=== PATIENT | female | born 1950 | race Caucasian/White ===

== ENCOUNTER 2016-12-09 14:22 | Emergency (ER) | payer MEDICARE ==
[~2016-12-09 14:22] MED LIST: BLOOD PRESSURE MED PO; C5 PO; CALTRA600D PO; DSS PO; FESO4 PO; FLEXI JOIN1 PO; GLUCOTROL5 PO; GLUCPH PO; KLONO1 PO; KLONO2 PO; KLONOPIN PO; KLONOPIN WAF0.125 MG PO; LEVEMIR SC; LIDODERM T; LORTAB10 PO; MAGNESIUM OTC PO; MSM PO; MULTIPLE VIT PO; NEXIUM20 M1 PO; NEXIUM40 PO; NOVOLOG SC; OXYCOD PO; PEP20 PO; PERCOCET1 TA2 PO; PERCOCET1 TA4 PO; PRILOSEC OTC20 MG PO; PRIN2.5 PO; PRIN5 PO; ROCEPH PO; ROXICODONE15 MG PO; SOMATAB PO; VICTOZA18 MG/3 ML SC; VITAMIN D OTC PO; ZESTORETIC PO; ZESTRIL2.5 MG PO
[2016-12-09 15:42] LABS: BASOPHILS 0.3 %; BASOPHILS ABSOLUTE 0.03 10/3/uL (0.0-0.16); EOSINOPHILS 0.8 %; EOSINOPHILS ABSOLUTE 0.07 10/3/uL (0.0-0.53); ER CBC TAT 0 Hrs 03 Mins; IMMATURE GRANULOCYTES 0.2 %; IMMATURE GRANULOCYTES ABSOLUTE 0.02 10/3/uL (0.0-0.11); LYMPHOCYTES 42.9 %; MEAN CORPUSCULAR HEMOGLOB 28.4 pg (26.0-34.0); MEAN CORPUSCULAR VOLUME 86.1 fL (80-100); MEAN PLATELET VOLUME 9.6 fL (9.2-13.0); MONOCYTES 10.4 %; MONOCYTES ABSOLUTE 0.97 10/3/uL (0.21-1.20); NEUTROPHILS 45.4 %; NEUTROPHILS ABSOLUTE 4.23 10/3/uL (2.02-8.40); PLATELET COUNT 420 10/3/uL (150-400); RBC DISTRIBUTION WIDTH 15.6 % (12.0-16.0); RED CELL COUNT 3.17 10/6/uL (4.0-5.6); WHITE BLOOD CELLS 9.3 10/3/uL (4.5-10.5)
[2016-12-09 15:43] LABS: HEMATOCRIT 27.3 % (36.0-48.0); MANUAL DIFF NO %
[2016-12-09 15:59] LABS: A/G RATIO 0.7 (0.7-1.9); ALBUMIN 3.2 G/DL (3.5-5.0); ALKALINE PHOSPHATASE 118 U/L (45-117); CALCIUM, SERUM 8.4 MG/DL (8.5-10.4); CHLORIDE, SERUM 99 MMOL/L (96-112); CO2 (CARBON DIOXIDE) 26 MMOL/L (24-34); GFR AFRICAN AMERICAN 29 ML/MIN (>=60); GFR NON AFRICAN AMERICAN 25 ML/MIN (>=60); GLOBULIN 4.8 G/DL (2.5-4.1); GLUCOSE, SERUM 236 MG/DL (60-99); POTASSIUM, SERUM 3.7 MMOL/L (3.5-5.3); SGOT(AST) 37 U/L (5-40); SGPT(ALT) 53 U/L (5-65); SODIUM, SERUM 137 MMOL/L (135-148); TOTAL BILIRUBIN 0.5 MG/DL (0-1.2); TROPONIN I 0.04 NG/ML (<0.05)
[2016-12-09 16:00] LABS: BUN (BLOOD UREA NITROGEN) 50 MG/DL (6-23); CREATININE 2.01 MG/DL (0.55-1.02)
== END 2016-12-09 16:50 | disposition home or self-care (01) ==
LOC: ER 14:22
PROVIDERS: Emergency Medicine
DX: M25.512 Pain in left shoulder (principal); I12.9 Hypertensive chronic kidney disease with stage 1 through stage 4 chronic kidney disease, or unspecified chronic kidney disease; E11.22 Type 2 diabetes mellitus with diabetic chronic kidney disease; N18.9 Chronic kidney disease, unspecified; K21.9 Gastro-esophageal reflux disease without esophagitis; F32.9 Major depressive disorder, single episode, unspecified; F41.9 Anxiety disorder, unspecified; Z91.09 Other allergy status, other than to drugs and biological substances; Z79.4 Long term (current) use of insulin; Z79.01 Long term (current) use of anticoagulants; Z79.899 Other long term (current) drug therapy; W19.XXXA Unspecified fall, initial encounter
CPT/HCPCS: 71020; 73030-LT; 80053; 81001; 84484; 85025; 87040; 93005; 99285